=== PATIENT | female | born 1990 | race Caucasian/White ===

== ENCOUNTER 2017-10-12 00:05 | Emergency (ER) | payer BC ==
[2017-10-12] MEDS ORDERED: Ondansetron HCl/PF 4 MG/2 ML Vial ONE ×2 (00:27→01:39)
[2017-10-12 00:59] LABS: Bilirubin Negative (Negative); Blood, Urine Small (Negative); Glucose, Urine (Dipstick) Negative (Negative); Ketone, Urine 80 mg/dL (Negative); Nitrite Negative (Negative); Protein, Urine (Dipstick) Negative (Neg-Trace); Urobilinogen 0.2 mg/dL (0.2-1.0)
[2017-10-12 01:01] LABS: #Eosinphils 0.1 thou/uL (0.0-0.7); #Lymphocytes 1.4 thou/uL (1.20-3.40); #Monocytes 0.9 thou/uL (0.11-0.59); #Neutrophils 13.9 thou/uL (1.40-6.50); %Eosinophils 0.3 % (0.0-10.0); %Lymphocytes 8.4 % (21.0-51.0); %Monocytes 5.7 % (0.0-10.0); Hematocrit 45.5 % (36.0-47.0); Mean Platelet Volume 8.6 fL (7.4-10.4); Red Blood Cell (RBC) Count 4.81 mill/uL (4.20-5.40); White Blood Cell (WBC) Count 16.3 thou/uL (4.8-10.8)
[2017-10-12 01:02] LABS: Bacteria/HPF None Seen HPF (None Seen); Hyaline Casts/LPF 4-6 HYALINE CAST LPF (0-3 Hyaline)
[2017-10-12 01:04] LABS: Yeast-All Forms None Seen HPF (None Seen)
[2017-10-12 01:33] LABS: ALT (SGPT) 12 U/L (8-55); AST (SGOT) 18 U/L (5-34); Alkaline Phosphatase 77 U/L (40-150); Anion Gap 17 mmol/L (10-20); BUN (Urea Nitrogen) 12 mg/dL (7.0-18.7); Calc. Creatinine Clearance 0 mL/min (70-130); Calcium 9.6 mg/dL (7.8-10.44); Carbon Dioxide 19 mmol/L (22-29); Chloride 104 mmol/L (98-107); Estimated GFR-MDRD Greater than 90; Globulin 3.8 g/dL (2.4-3.5); Lipase 8 U/L (8-78); Protein, Total 8.6 g/dL (6.0-8.3)
[2017-10-12] MEDS ORDERED: Water For Inject, Bacteriostat 30 ML ONE (01:39)
[2017-10-12] MEDS ORDERED: Morphine 4 MG/ML VIAL ONE (01:39)
[2017-10-12] MEDS ORDERED: methylPREDNISolone Sod Succ/PF 125 MG/2 ML VIAL ONE (01:39)
--- NOTE | 2017-10-12 08:02 | ULT ---
PRELIMINARY REPORT/[facility]/EMERGENCY AFTER HOURS PROCEDURE: EXAM: US Abdomen Limited, Right Upper Quadrant EXAM DATE/TIME: Exam ordered 10/12/2017 12:47 AM CLINICAL HISTORY: 27 years old, female; Pain; Other: Abd pain, vomitting, HX of crohns TECHNIQUE: Real-time ultrasound of the right upper quadrant with image documentation. COMPARISON: No relevant prior studies available. FINDINGS: Liver: Unremarkable. No mass. No intrahepatic bile duct dilation. Gallbladder: Unremarkable. No gallstones. Common bile duct: Unremarkable as visualized. No stones. No dilation. Pancreas: Unremarkable as visualized. Right kidney: Unremarkable. No stones. No solid mass. No hydronephrosis. IMPRESSION: Normal right upper quadrant ultrasound. Thank you for allowing us to participate in the care of your patient. Dictated and Authenticated by: Marty Jose MD 10/12/2017 1:12 AM Central Time ([place] & [place]) FINAL REPORT RIGHT UPPER QUADRANT ULTRASOUND: EMERGENT AFTER HOURS EXAMINATION TIME: 12:56 a.m. DATE: 10/12/17. No gallstones, biliary ductal dilatation, or other significant acute process. POS: HAY
== END 2017-10-12 02:54 | disposition home or self-care (01) ==
LOC: ERS 00:05
DX: K50.90 Crohn's disease, unspecified, without complications (principal)
CPT/HCPCS: 76705; 80053; 81003; 81015; 81025; 83690; 85025; 96361; 96372; 96374; 96375; 96376; J2270; J2405; J2930

== ENCOUNTER 2017-12-24 19:58 | Inpatient (IN) | payer BC, SELFPAY ==
[~2017-12-24 19:58] MED LIST: GASTROGRAFIN 30 ML BOT ONE; Iopamidol 370 76% 100 ML VIAL ONE
[2017-12-24 20:31] LABS: #Eosinphils 0.1 thou/uL (0.0-0.7); #Lymphocytes 1.4 thou/uL (1.20-3.40); #Monocytes 0.8 thou/uL (0.11-0.59); #Neutrophils 11.2 thou/uL (1.40-6.50); %Basophils 0.1 % (0.0-1.0); %Eosinophils 0.9 % (0.0-10.0); %Lymphocytes 10.5 % (21.0-51.0); %Monocytes 5.8 % (0.0-10.0); %Neutrophils 82.8 % (42.0-75.0); Hemoglobin 15.2 g/dL (12.0-16.0); Mean Corpuscular HGB CONC 32.7 g/dL (32.0-36.0); Mean Corpuscular Volume 94.8 fl (81.0-99.0); Platelet Count 323 thou/uL (130-400); RBC Distribution Width 11.7 % (11.5-14.5); Red Blood Cell (RBC) Count 4.92 mill/uL (4.20-5.40); White Blood Cell (WBC) Count 13.6 thou/uL (4.8-10.8)
[2017-12-24 20:43] LABS: Bilirubin Negative (Negative); Blood, Urine Small (Negative); Clarity CLOUDY (Clear); Glucose, Urine (Dipstick) Negative (Negative); Leukocyte Negative (Negative); Nitrite Negative (Negative); Protein, Urine (Dipstick) Trace mg/dL (Neg-Trace); Specific Gravity, Urine 1.031 (1.002-1.036); Urobilinogen 0.2 mg/dL (0.2-1.0); pH, Urine 5.5 (5.0-9.0)
[2017-12-24 20:44] LABS: Pregnancy Test - Urine (BHCG) Negative (Negative); Pregu Control Background? CLEAR/WHITE (CLR/WHITE); Pregu Control Bar Appear? YES (CONTROL BAR); Specific Gravity 1.031 (1.002-1.036)
[2017-12-24 20:46] LABS: Bacteria/HPF Rare-Few HPF (None Seen); Hyaline Casts/LPF 0-3 HYALINE CAST LPF (0-3 Hyaline); Pathc Cast-AUWi Flag 0.13 (0-2.49)
[2017-12-24 20:48] LABS: Yeast-AUWi Flag 70.8 (0-25.0)
[2017-12-24 20:52] LABS: ALT (SGPT) 11 U/L (8-55); AST (SGOT) 15 U/L (5-34); Albumin 4.9 g/dL (3.5-5.0); Alkaline Phosphatase 83 U/L (40-150); Anion Gap 14 mmol/L (10-20); BUN (Urea Nitrogen) 12 mg/dL (7.0-18.7); Bilirubin, Total 0.9 mg/dL (0.2-1.2); Calc. Creatinine Clearance 0 mL/min (70-130); Calcium 9.7 mg/dL (7.8-10.44); Carbon Dioxide 25 mmol/L (22-29); Chloride 104 mmol/L (98-107); Estimated GFR-MDRD Greater than 90; Globulin 3.7 g/dL (2.4-3.5); Glucose 100 mg/dL (70-105); Potassium 3.6 mmol/L (3.5-5.1); Protein, Total 8.6 g/dL (6.0-8.3); Sodium 139 mmol/L (136-145)
[2017-12-24 20:55] LABS: Yeast-All Forms None Seen HPF (None Seen)
--- NOTE | 2017-12-24 22:57 | CT ---
ABDOMEN AND PELVIC CT SCAN WITH IV CONTRAST 12/24/17 HISTORY: 27-year-old female with history of abdominal pain. Past medical history of Crohn's disease. Oral and rectal contrast media was given as well. COMPARISON: 10/19/16. The lung bases appear clear. The liver, gallbladder, pancreas, spleen, and adrenal glands are unremar kable. No renal calculus or acute obstruction. There is abnormally dilated small bowel, evidence f or small bowel obstruction with dilated bowel seen down to the level of the terminal ileum with some increased wall thickening at the level of the terminal ileum which may well be related to Crohn's dis ease. A normal appendix is not seen, although there appears to be at least one surgical clip in the e xpected location of the appendix raising concern that the patient may have had a prior appendectomy. There is some moderate free fluid in the pelvis. Uterus and adnexa are somewhat poorly defined. There is no CT evidence for acute appendicitis. IMPRESSION: Evidence for small bowel obstruction with dilated small bowel seen down to the level near the ileocec al valve with some associated terminal ileal wall thickening probably related to Crohn's disease. Ernst e intraperitoneal fluid, moderate within the pelvis. No evidence of an abscess. No CT evidence for ac [place] appendicitis. POS: ANA MARIA
[2017-12-24] MEDS ORDERED: Ondansetron HCl/PF 4 MG/2 ML Vial ONE (23:00)
[2017-12-25] MEDS ORDERED: Ondansetron HCl/PF 4 MG/2 ML Vial IVP PRN (01:20)
[2017-12-25] MEDS ORDERED: Morphine 5 MG/ML SYRINGE SLOW IVP PRN ×2 (01:20→14:45)
[2017-12-25] MEDS ORDERED: Acetaminophen 325 MG TAB PO PRN (01:20)
[2017-12-25] MEDS ORDERED: Ondansetron ODT 4 MG TAB SL PRN (01:20)
[2017-12-25] MEDS: Sodium Chloride 0.9% 1,000 ML IV SCH ×2 (01:27→14:53)
[2017-12-25 01:29] VITALS: BMI 24.0
[2017-12-25] MEDS: FLU VACC QS2017-18 36 mo. & older 0.5 ML SYRINGE IM ONE (01:59)
--- NOTE | 2017-12-25 04:15 | HP ---
DATE OF ADMISSION: 12/25/2017 ADMITTING PHYSICIAN: Dr. Florencio Canas. PRIMARY CARE PHYSICIAN: Dr. Coco Romo. SQUILGEER OF RECORD: Dr. Kendrick. CHIEF COMPLAINT: Abdominal pain. HISTORY OF PRESENT ILLNESS: This is a 27-year-old female with history of Crohn's disease. She repor ts 2 days ago that she ate a TV dinner as well as chips with ranch and dip. She began to experience some abdominal discomfort after this meal. Her abdominal pain has worsened over the following 2 days . She denies any vomiting, diarrhea, and hematochezia. The pain is dull in nature. She rated her m aximum pain 3/10. She reports her last bowel movement was approximately 5:00 p.m. on . It w as a relatively normal bowel movement, no watery diarrhea, no bloody diarrhea. REVIEW OF SYSTEMS: The following complete review of systems was negative, unless otherwise mentioned in the HPI or below: Constitutional: Weight loss or gain, sense of well-being, ability to conduct usual activities, exercise tolerance. Skin/Breast: Rash, itching, changes in hair growth or loss, n ail changes, breast lumps, tenderness, swelling, nipple discharge. Eyes: Vision, double vision, tea ring, blind spots, pain. ENT/Mouth: Headaches (location, time of onset, duration, precipitating fac tors), vertigo, lightheadedness, injury. Vision, double vision, tearing, blind spots, pain, nose blee ding, colds, obstruction, discharge, dental difficulties, gingival bleeding, dentures, neck stiffness , pain, tenderness, masses in thyroid or other areas. Cardiovascular: Precordial pain, substernal d istress, palpitations, syncope, dyspnea on exertion, orthopnea, nocturnal paroxysmal dyspnea, edema, cyanosis, hypertension, heart murmurs, varicosities, phlebitis, claudication. Respiratory: Pain, sh ortness of breath, wheezing, stridor, cough, hemoptysis, fever or night sweats. Gastrointestinal: P oor appetite, dysphagia, indigestion, abdominal pain, heartburn, eructation, nausea, vomiting, hemate mesis, jaundice, constipation, or diarrhea, abnormal stools (dasia-colored, tarry, bloody, greasy, fou l smelling), flatulence, hemorrhoids, recent changes in bowel habits. Genitourinary: Urgency, frequency, dysuria, nocturia, hematuria, polyuria, oliguria, unusual (or fawn nge in) color of urine, stones, hesitancy, change in size of stream, dribbling, acute retention or in continence, libido, potency. Musculoskeletal: Pain, swelling, redness or heat of muscles or joints, limitation, of motion, muscular weakness, atrophy, cramps. Neurologic/Psychiatric: Convulsions, par alyses, tremor, incoordination, parasthesias, difficulties with memory of speech, sensory or motor di sturbances, or muscular coordination (ataxia, tremor), emotional problems, anxiety, depression, previ ous psychiatric care, unusual perceptions, hallucinations. Allergy/Immunologic: Skin rash, anemia, bleeding tendency, polydipsia, polyuria, intolerance to heat or cold. PAST MEDICAL HISTORY: Significant for Crohn's disease. PAST SURGICAL HISTORY: Positive for right oophorectomy. PSYCHIATRIC HISTORY: Positive for depression. SOCIAL HISTORY: Denies alcohol, denies drug use. No smoking. FAMILY HISTORY: Reviewed and noncontributory to this particular case. HOME MEDICATIONS: Include Abilify 15 mg every day, Celexa 40 mg every day, Imuran 50 mg b.i.d. ALLERGIES: No known drug allergies. PHYSICAL EXAMINATION: VITAL SIGNS: Temperature of 98.4, blood pressure 112/70, pulse 86, respirations 16, satting 96% on r oom air. GENERAL: She is a pleasant young lady with no apparent distress. HEAD: Normocephalic, atraumatic. EYES: PERRL. Extraocular muscles are intact. ENT: Normal. Oral mucosa pink, moist. NECK: Trachea midline, normal range of motion, supple. CHEST: Breath sounds clear. No rhonchi, no wheezes, no crackles. CARDIOVASCULAR: Regular rate and rhythm, no murmurs, regurg or gallops. ABDOMEN: Mild tenderness in right lower quadrant. No guarding, no rebound, no masses, no pulsatile masses. EXTREMITIES: No clubbing, cyanosis or edema. NEUROLOGIC: Cranial nerves II-XII grossly intact. Alert and oriented x3. LABORATORY DATA AND IMAGES: Abdominal CT shows small-bowel obstruction with dilated small-bowel seen down to the level near the ileocecal valve with some terminal ileal wall thickening, but no evidence of abscess, no evidence for acute appendicitis. CBC shows a white count of 13.6, hemoglobin 15.2, h ematocrit 46.6, platelets 323,000, neutrophil percentage 83%. Chemistry shows sodium of 139, potassi um 3.6, CO2 of 25, BUN 12, creatinine 0.75, glucose 100, calcium 9.7, AST 15, ALT 11, alkaline phosph atase 83, total protein of 8.6. Urinalysis is yellow, cloudy, ketones 15, small amount of blood, neg ative nitrites, negative leukocytes, rare to few bacteria. ASSESSMENT AND PLAN: 1. Acute Crohn's disease flare. 2. Small-bowel obstruction. 3. Depression. PLAN: Patient will be admitted to medicine observation. We will supply fluid resuscitation, IV Solu -Medrol, IV levofloxacin. We will also consult the Gastroenterology Service to assist in providing c are to this patient. We will continue her home regimen for her mood disorder. We will provide VTE p rophylaxis with SCD devices.
[2017-12-25 05:42] LABS: #Eosinphils 0.1 thou/uL (0.0-0.7); #Monocytes 0.9 thou/uL (0.11-0.59); #Neutrophils 6.4 thou/uL (1.40-6.50); %Basophils 0.1 % (0.0-1.0); %Lymphocytes 21.8 % (21.0-51.0); %Monocytes 9.1 % (0.0-10.0); Hemoglobin 13.1 g/dL (12.0-16.0); Mean Corpuscular HGB CONC 33.1 g/dL (32.0-36.0); Mean Corpuscular Hemoglobin 31.3 pg (27.0-31.0); Mean Corpuscular Volume 94.7 fl (81.0-99.0); Mean Platelet Volume 8.3 fL (7.4-10.4); Platelet Count 236 thou/uL (130-400); RBC Distribution Width 11.7 % (11.5-14.5); Red Blood Cell (RBC) Count 4.18 mill/uL (4.20-5.40); White Blood Cell (WBC) Count 9.4 thou/uL (4.8-10.8)
[2017-12-25] MEDS ORDERED: methylPREDNISolone Sod Succ/PF 125 MG/2 ML VIAL IVP SCH (09:00)
[2017-12-25] MEDS ORDERED: Sodium Chloride 0.9% 10 ML ONE ×2 (09:09→14:46)
[2017-12-25] MEDS: Famotidine/PF 20 mg/2ml Vial SLOW IVP SCH ×2 (09:37→21:52)
[2017-12-25] MEDS: azaTHIOprine 50 MG TAB PO SCH ×3 (09:37→21:53)
[2017-12-25] MEDS ORDERED: Ondansetron ODT 4 MG TAB PO PRN (14:09)
[2017-12-25] MEDS ORDERED: Morphine 4 MG/ML Carpuject SLOW IVP PRN (14:09)
[2017-12-25] MEDS: Ondansetron HCl/PF 4 MG/2 ML Vial IVP PRN (14:48)
[2017-12-25] MEDS: Aripiprazole 10 MG TAB PO SCH (21:53)
--- NOTE | 2017-12-26 01:09 | CON ---
DATE OF CONSULTATION: 12/25/2017 GASTROENTEROLOGY CONSULTATION CHIEF COMPLAINT: Abdominal pain. HISTORY OF PRESENT ILLNESS: Mr. Capps is a 27-year-old woman who has a history of terminal ileum Crohn's disease, who presented with cramping right lower quadrant pain that started early yesterday m orning. She had 3 episodes of nausea and vomiting at home, but that has since resolved and the pain has been constant and cramping, but becomes intense for 10 or 15 minutes few times through the day. She has had no blood in the stool. She had a formed bowel movement yesterday. She has not had diarr hea or constipation with this. She has had no fever and she did go to the emergency room around last September with abdominal pain and was given a course of steroids and sent home. Around that time she quit taking her azathioprine. She had been following with Dr. Kendrick most recently and she last saw him around March. He performed colonoscopy for her at the [facility] around . She has not followed up with him since then and she has since ran out of the azathioprine. S he was admitted now and received IV steroids and her pain is much improved. PAST MEDICAL HISTORY: Crohn's disease, depression. PAST SURGICAL HISTORY: Ovary removed for large cyst. FAMILY HISTORY: Positive for colon cancer in her uncle. There is no family history of inflammatory bowel disease. SOCIAL HISTORY: No alcohol, tobacco or drugs. ALLERGIES: No known drug allergies. MEDICATIONS AT HOME: Prior to admission include Abilify and Celexa. She has not been taking the aza thioprine over the last few months. REVIEW OF SYSTEMS: Negative x10 systems reviewed except as stated in the history of present illness. PHYSICAL EXAMINATION: VITAL SIGNS: Temperature 98.2, pulse 83, blood pressure 100/56. GENERAL: She is in no acute distress, alert and oriented x3. HEENT: Eyes have no scleral icterus. Oropharynx is clear, without lesions. NECK: No cervical or supraclavicular lymphadenopathy. LUNGS: Clear to auscultation bilaterally. HEART: Regular rate and rhythm without murmur. ABDOMEN: Soft. She has tenderness in the lower abdomen without guarding. Bowel sounds are present. EXTREMITIES: No lower extremity edema. NEUROLOGIC: Cranial nerves are grossly intact. LABORATORY: White blood cell count is 9.4 today down from 13.6 yesterday, hemoglobin 13.1, platelets 236, creatinine 0.75, bilirubin 0.9, AST 15, ALT 11, alkaline phosphatase 83, albumin 4.9. She did have a CT scan of the abdomen and pelvis on 12/24/2017, which showed wall thickening of the terminal ileum and dilated small bowel up to the level of the terminal ileum. IMPRESSION: Exacerbation of Crohn's disease in the terminal ileum. She was diagnosed with Crohn's d isease in 2005. She had been treated longer term with azathioprine. She did take Remicade for a cou ple months around 2014, but had trouble scheduling this for her outpatient infusions with work and e ultimately quit taking it. She quit taking her azathioprine in 09/2017. She has not followed up w sahara Kendrick since March. She did have a colonoscopy around 03/2017. CT scan shows dilation of t he small bowel up to the inflamed terminal ileum. She does not appear to have an obvious bowel obstr uction now, she has had no ongoing vomiting and she had a normal bowel movement yesterday. She has m ild tenderness, but bowel sounds are active. RECOMMENDATIONS: 1. Continue methylprednisolone 20 mg q.8 hours I will reduce the dose of this. 2. If she is only on levofloxacin for the Crohn's disease, then this should be able to be discontinu ed. I will not stop it now in case the primary service has her on another reason I am not aware of. 3. Restart azathioprine. She has been on 150 mg daily previously. 4. She could likely benefit from Humira. She will need to follow up with Dr. Kendrick as an outpat ient demonstrate noncompliance and she will also need to get routine blood work checked while on azat hioprine. This was discussed with her and she is agreeable. 5. Her symptoms have markedly improved with steroids. I will start clear liquids this evening and i f she tolerates this well tomorrow we can advance her diet.
[2017-12-26] MEDS: Sodium Chloride 0.9% 1,000 ML IV SCH ×3 (06:35→13:44)
[2017-12-26] MEDS: azaTHIOprine 50 MG TAB PO SCH ×2 (09:22→13:44)
[2017-12-26] MEDS: Famotidine/PF 20 mg/2ml Vial SLOW IVP SCH ×2 (09:22→21:32)
[2017-12-26] MEDS: Acetaminophen 325 MG TAB PO PRN (09:22)
--- NOTE | 2017-12-26 15:36 | PDOC.PN ---
- Subjective Encounter Start Date: 12/26/17 Encounter Start Time: 10:30 -: old records requested/rev Pt seen and examined, chart reviewed in its entirety. This is my first visit with this patient. admitted early 12/25 for crohn's flare. seen by GI last evening, continued on IV steroids, recommended stopping levoflox, eventually starting humira, start back azathioprine, though wont be helpful for some time Case discussed with Dr Rodgers face to face. Pt sarbjit clear diet, no F/C, nauseated this am after drinking her breakfast she thinks too fast, non last night. No diarheea, no rectal bleeding, no Cough, no CP or SOB 10 point ROS performed and neg for all systems except as above - Objective Resuscitation Status: Resuscitation Status FULL:Full Resuscitation MAR Reviewed: Yes Vital Signs & Weight: Vital Signs (12 hours) Temp Pulse Resp BP Pulse Ox 12/26/17 12:06 97.7 F 77 20 92/51 L 98 12/26/17 08:24 97.7 F 71 20 99/55 L 96 12/26/17 08:10 98.0 F 79 18 Weight Weight 144 lb 13.499 oz I&O: 12/25/17 12/26/17 12/27/17 06:59 06:59 06:59 Intake Total 394 2165 1340 Output Total 175 Balance 219 2165 1340 Result Diagrams: 12/25/17 05:08 12/24/17 20:21 Radiology Reviewed by me: Yes EKG Reviewed by me: Yes Phys Exam - Physical Examination Constitutional: NAD HEENT: PERRLA, moist MMs, sclera anicteric, oral pharynx no lesions Neck: no nodes, no JVD, supple, full ROM Respiratory: no wheezing, no rales, no rhonchi, clear to auscultation bilateral Cardiovascular: RRR, no significant murmur, no rub Gastrointestinal: soft, non-tender, no distention, positive bowel sounds Musculoskeletal: no edema, pulses present Neurological: non-focal, normal sensation, moves all 4 limbs Lymphatic: no nodes Psychiatric: normal affect, A&O x 3 Skin: no rash, normal turgor, cap refill <2 seconds Dx/Plan (1) Acute Crohn's disease without complication Code(s): K50.90 - CROHN'S DISEASE, UNSPECIFIED, WITHOUT COMPLICATIONS Status: Acute Comment: IV steroid,s azathioprine, stop levoflox. advance diet, pain control. Home when sarbjit p and cleared by GI. anticipate in 1-2 days. markedly better today (2) Crohn's disease involving terminal ileum Code(s): K50.90 - CROHN'S DISEASE, UNSPECIFIED, WITHOUT COMPLICATIONS Status: Acute (3) Iron deficiency anemia Code(s): D50.9 - IRON DEFICIENCY ANEMIA, UNSPECIFIED Status: Chronic Qualifiers: Iron deficiency anemia type: inadequate dietary iron intake Qualified Code( s): D50.8 - Other iron deficiency anemias (4) Depression Code(s): F32.9 - MAJOR DEPRESSIVE DISORDER, SINGLE EPISODE, UNSPECIFIED Status : Chronic Qualifiers: Depression Type: unspecified Qualified Code(s): F32.9 - Major depressive disorder, single episode, unspecified - Plan cont current plan of care, out of bed/ambulate, DVT proph w/lovenox * . as above
[2017-12-26] MEDS ORDERED: Sodium Chloride 0.9% 10 ML ONE (17:30)
--- NOTE | 2017-12-26 19:58 | PRG ---
DATE OF SERVICE: 12/26/2017 SUBJECTIVE: Ms. Capps is feeling better today. Her abdominal pain is improved. She has had some nausea, but no vomiting. She is tolerating a clear liquid diet. OBJECTIVE: VITAL SIGNS: Temperature 97.7, pulse 77, blood pressure 92/51. GENERAL: She is in no acute distress, alert and oriented x3. EYES: Have no scleral icterus. LUNGS: Clear to auscultation bilaterally. HEART: Regular rate and rhythm. ABDOMEN: Soft. Mild tenderness in the lower abdomen without guarding. Bowel sounds are present. EXTREMITIES: No lower extremity edema. IMPRESSION: Exacerbation of Crohn's ileitis. She is responding well to IV steroids so far. She has not been compliant with office followup or continuation of her medications. I think she could benef it from Humira. RECOMMENDATIONS: 1. We will check a TB QuantiFERON and hepatitis B surface antigen, and HIV 1 and 2 in anticipation o f potentially starting back on anti-TNF therapy. This would need to be done as an outpatient after t he medication is improved and she keeps follow up with her primary health informatics advisor, Dr. Kendrick. He will also need to determine if he thinks Humira is appropriate for her. 2. Continue azathioprine 150 mg daily. She will need to have her CBC checked on this medication. 3. Primary treatment at this point is the steroids to try to induce remission and by time for the az athioprine to work. 4. We will advance to a full liquid diet this evening. If she tolerates this well, then potentially advance to a low residue diet tomorrow. If she tolerates that well, then she could potentially be s witched the next day to oral prednisone and discharged home that evening if doing well. Again, she w as encouraged to follow up with Dr. Kendrick in the office; however, he should be back in the hospit al to round on her tomorrow.
[2017-12-26] MEDS: FLU VACC QS2017-18 36 mo. & older 0.5 ML SYRINGE IM ONE (21:34)
[2017-12-26] MEDS: Aripiprazole 10 MG TAB PO SCH (21:37)
[2017-12-27] MEDS: Sodium Chloride 0.9% 1,000 ML IV SCH ×2 (00:59→12:27)
[2017-12-27] MEDS: Famotidine/PF 20 mg/2ml Vial SLOW IVP SCH ×2 (07:54→21:19)
[2017-12-27] MEDS: azaTHIOprine 50 MG TAB PO SCH (07:54)
[2017-12-27] MEDS: Acetaminophen 325 MG TAB PO PRN (07:54)
[2017-12-27] MEDS ORDERED: Sodium Chloride 0.9% 10 ML ONE ×2 (10:43→11:12)
[2017-12-27 10:53] LABS: HBSAg Index 0.19 S/CO (0-0.99); Hep B Surf Ag Non-Reactive S/CO (NonReactive)
[2017-12-27] MEDS ORDERED: predniSONE 20 MG TAB PO SCH ×2 (11:15→11:45)
[2017-12-27] MEDS ORDERED: Citalopram 20 MG TAB PO SCH (11:45)
[2017-12-27] MEDS: Ondansetron HCl/PF 4 MG/2 ML Vial IVP PRN (13:22)
--- NOTE | 2017-12-27 13:51 | PDOC.PN ---
- Subjective Encounter Start Date: 12/27/17 Encounter Start Time: 12:30 sarbjit full liquids, no vomiting, minimal nausea, pain improving, sarbjit solumedrol, just got a dose at 1000. Dr Holly requested labs for TB, Hep B etc prior to immunomodulating Rx. plans rto let Dr العلي work on it as an outpateint. No diarrhea, no rectal bleeding 10 point ROS performed and neg for all systems except as above - Objective Resuscitation Status: Resuscitation Status FULL:Full Resuscitation MAR Reviewed: Yes Vital Signs & Weight: Vital Signs (12 hours) Temp Pulse Resp BP Pulse Ox 12/27/17 12:18 97.7 F 78 18 105/57 L 97 12/27/17 08:08 97.9 F 75 18 105/53 L 96 12/27/17 08:00 97.9 F 75 18 12/27/17 05:12 72 16 108/62 97 Weight Weight 144 lb 13.499 oz I&O: 12/26/17 12/27/17 12/28/17 06:59 06:59 06:59 Intake Total 2165 3526 240 Output Total 600 Balance 2165 3526 -360 Result Diagrams: 12/25/17 05:08 12/24/17 20:21 Phys Exam - Physical Examination Constitutional: NAD HEENT: PERRLA, moist MMs, sclera anicteric, oral pharynx no lesions Neck: no nodes, no JVD, supple, full ROM Respiratory: no wheezing, no rales, no rhonchi, clear to auscultation bilateral Cardiovascular: no significant murmur, no rub Gastrointestinal: soft, non-tender, no distention, positive bowel sounds Musculoskeletal: no edema, pulses present Neurological: non-focal, normal sensation, moves all 4 limbs Lymphatic: no nodes Psychiatric: normal affect, A&O x 3 Skin: no rash, normal turgor, cap refill <2 seconds Dx/Plan (1) Acute Crohn's disease without complication Code(s): K50.90 - CROHN'S DISEASE, UNSPECIFIED, WITHOUT COMPLICATIONS Status: Acute Comment: IV steroid,s azathioprine, stop levoflox. advance diet, pain control. Home when sarbjit po and cleared by GI. po prednisone to srtart today and restart pts Celexa. Home when ok with GI (2) Crohn's disease involving terminal ileum Code(s): K50.90 - CROHN'S DISEASE, UNSPECIFIED, WITHOUT COMPLICATIONS Status: Acute (3) Iron deficiency anemia Code(s): D50.9 - IRON DEFICIENCY ANEMIA, UNSPECIFIED Status: Chronic Qualifiers: Iron deficiency anemia type: inadequate dietary iron intake Qualified Code( s): D50.8 - Other iron deficiency anemias (4) Depression Code(s): F32.9 - MAJOR DEPRESSIVE DISORDER, SINGLE EPISODE, UNSPECIFIED Status : Chronic Qualifiers: Depression Type: unspecified Qualified Code(s): F32.9 - Major depressive disorder, single episode, unspecified - Plan * .
--- NOTE | 2017-12-27 15:46 | PRG ---
DATE OF SERVICE: 12/27/2017 SUBJECTIVE: She has tolerated full liquids well. She has no abdominal pain, minimal nausea this mor divina. She has not had a bowel movement since admission, but has not been eating much, wants to wait for another day before she takes a laxative. OBJECTIVE: VITAL SIGNS: Temperature 97.7, pulse 78, blood pressure 105/57. GENERAL: She is in no acute distress, alert and oriented x3. LUNGS: Clear to auscultation bilaterally. HEART: Regular rate and rhythm. ABDOMEN: Soft, nontender, nondistended, bowel sounds are present. EXTREMITIES: No lower extremity edema. IMPRESSION: Exacerbation of Crohn ileitis. She has responded well to IV steroids. RECOMMENDATIONS: 1. Azathioprine 150 mg daily has been restarted. She will need to have her CBC and LFTs checked as an outpatient. 2. She likely could benefit from Humira. We will have her followup with Dr. Kendrick to consider t his further. TB QuantiFERON, hepatitis B surface antigen, and HIV have been sent and are pending. 3. She will require a steroid taper with prednisone 40 mg daily for 1 week, 30 mg daily for 1 week, 20 mg daily for 1 week, 10 mg daily for 1 week, 5 mg daily for 1 week, then discontinue. 4. Follow up with Dr. Kendrick and anticipate discharge home tomorrow if she tolerates the low fibe r diet and oral steroids as well by tomorrow afternoon. Dr. Kendrick should be back rounding tomorr ow.
[2017-12-27] MEDS: Aripiprazole 10 MG TAB PO SCH (21:19)
[2017-12-28 06:27] LABS: HIV (1/2) Antibody/Antigen Non-Reactive (NonReactive); HIV 1/2 INDEX 0.12 S/CO (<1.00)
[2017-12-28] MEDS ORDERED: predniSONE 20 MG TAB PO SCH ×2 (08:00)
[2017-12-28] MEDS ORDERED: Citalopram 20 MG TAB PO SCH (09:00)
[2017-12-28] MEDS: Acetaminophen 325 MG TAB PO PRN (09:37)
[2017-12-28] MEDS: azaTHIOprine 50 MG TAB PO SCH (09:37)
[2017-12-28] MEDS: Famotidine/PF 20 mg/2ml Vial SLOW IVP SCH (09:40)
[2017-12-28] MEDS: Sodium Chloride 0.9% 1,000 ML IV SCH (10:10)
[2017-12-28 16:37] VITALS: BP 105/61; TEMP 98.2
--- NOTE | 2017-12-29 01:31 | DIS ---
DATE OF ADMISSION: 12/24/2017 DATE OF DISCHARGE: 12/28/2017 DISCHARGE DIAGNOSES: 1. Acute Crohn's exacerbation, resolving. 2. Crohn's disease involving the terminal ileum. 3. Iron deficiency anemia, stable. 4. Depression. CONSULTATION: Dr. Rodgers with GI Service. PERTINENT LABORATORY AND X-RAY FINDINGS: Complete metabolic profile within normal limits. CBC showe d a white blood cell count ranging between 9.4-13.6. Urine beta-hCG was negative on 12/24/2017. Hep atitis B surface antigen was nonreactive on 12/27/2017. HIV 1 and 2 antigen and antibody were nonrea ctive on 12/28/2017. CT of the abdomen and pelvis dated 12/24/2017 showed questionable small-bowel o bstruction with dilated small bowel to the ileocecal valve with terminal ileal wall thickening second laurence to Crohn disease. HOSPITAL COURSE: Patient was admitted to the medical floor after initially presenting with increased abdominal pain with history of Crohn disease. The patient was placed on IV Solu-Medrol and IV Levaq uin and evaluated by the GI Service. The patient was also placed on Imuran after appropriate testing for hepatitis B and HIV. The patient was also noted with a negative urine test. The alize ent was clinically improved with IV fluids, IV Solu-Medrol, and general supportive measures. Current recommendations are to continue a prednisone taper therapy after discharge and follow up with GI ser vices for consideration of Humira as an outpatient. Overall, the patient remained clinically stable throughout the hospital course and ready for discharge on 12/28/2017. DISCHARGE MEDICATIONS: 1. Prednisone 10 mg 4 tabs p.o. daily x7 days, followed by 3 tabs p.o. daily x7 days, followed by 2 tabs p.o. daily x7 days, followed by 1 tab p.o. daily x7 days, followed by half a tab p.o. daily x7 d ays. 2. Abilify 5 mg p.o. at bedtime. 3. Imuran 50 mg p.o. t.i.d. 4. Celexa 40 mg p.o. daily. FOLLOWUP: The patient may follow up with her primary care provider, Dr. Coco Romo within 7 days of discharge. The patient may follow up with Dr. Kendrick with GI Service and to call his office for appointment time and date. CONDITION ON DISCHARGE: Stable. ACTIVITY: Ad jillian. DIET: Regular. CODE STATUS: FULL. DISPOSITION: Home on 12/28/2017.
== END 2017-12-28 18:45 | disposition home or self-care (01) | DRG 386 ==
LOC: ERS 19:58 → OBSVTOIN 23:43 → 3SE 23:43
PROVIDERS: ADMIT Internal Medicine Addiction Medicine; ATTEND Internal Medicine Addiction Medicine
DX: K50.912 Crohn's disease, unspecified, with intestinal obstruction (principal); D50.9 Iron deficiency anemia, unspecified; F32.9 Major depressive disorder, single episode, unspecified
CPT/HCPCS: 36415; 74177; 80053; 81003; 81015; 81025; 85025; 86480; 87340; 87389; 90471; 90682; 96374; 96375; J2270; A4216; G0008; J1956; J2405; J2920; J2930; J7500; J7506; Q0162; Q2036; S0028

== ENCOUNTER 2018-05-29 05:39 | Emergency (ER) | payer SELFPAY ==
[2018-05-29 06:24] LABS: Bilirubin Negative (Negative); Blood, Urine Negative (Negative); Clarity CLEAR (Clear); Glucose, Urine (Dipstick) Negative (Negative); Leukocyte Small (Negative); Nitrite Negative (Negative); Protein, Urine (Dipstick) Negative (Neg-Trace); Specific Gravity, Urine 1.023 (1.002-1.036); Urobilinogen 0.2 mg/dL (0.2-1.0); pH, Urine 6.5 (5.0-9.0)
[2018-05-29 06:27] LABS: Bacteria/HPF None Seen HPF (None Seen); Hyaline Casts/LPF 0-3 HYALINE CAST LPF (0-3 Hyaline); Pathc Cast-AUWi Flag 0.14 (0-2.49)
[2018-05-29 06:32] LABS: Pregnancy Test - Urine (BHCG) Negative (Negative); Pregu Control Background? CLEAR/WHITE (CLR/WHITE); Pregu Control Bar Appear? YES (CONTROL BAR); Specific Gravity 1.023 (1.002-1.036)
[2018-05-29 06:35] LABS: Yeast-AUWi Flag 38.2 (0-25.0)
[2018-05-29 06:44] LABS: #Basophils 0.1 thou/uL (0.0-0.2); #Eosinphils 0.2 thou/uL (0.0-0.7); #Monocytes 0.7 thou/uL (0.11-0.59); #Neutrophils 11.7 thou/uL (1.40-6.50); %Basophils 0.4 % (0.0-1.0); %Eosinophils 1.2 % (0.0-10.0); %Lymphocytes 7.3 % (21.0-51.0); %Monocytes 4.9 % (0.0-10.0); %Neutrophils 86.1 % (42.0-75.0); Mean Corpuscular HGB CONC 34.7 g/dL (32.0-36.0); Mean Corpuscular Volume 89.2 fL (78.0-98.0); Mean Platelet Volume 7.5 fL (7.4-10.4); Platelet Count 250 thou/uL (130-400); RBC Distribution Width 11.6 % (11.5-14.5); White Blood Cell (WBC) Count 13.6 thou/uL (4.8-10.8)
[2018-05-29 06:49] LABS: Yeast-All Forms None Seen HPF (None Seen)
[2018-05-29] MEDS ORDERED: Ondansetron HCl/PF 4 MG/2 ML Vial ONE (06:55)
[2018-05-29] MEDS ORDERED: Dexamethasone 10 MG/ML VIAL ONE (06:56)
[2018-05-29 07:05] LABS: ALT (SGPT) 13 U/L (8-55); AST (SGOT) 17 U/L (5-34); Albumin 4.4 g/dL (3.5-5.0); Alkaline Phosphatase 73 U/L (40-150); Anion Gap 12 mmol/L (10-20); BUN (Urea Nitrogen) 12 mg/dL (7.0-18.7); Bilirubin, Total 0.5 mg/dL (0.2-1.2); Calc. Creatinine Clearance 0 mL/min (70-130); Calcium 9.2 mg/dL (7.8-10.44); Carbon Dioxide 23 mmol/L (22-29); Chloride 106 mmol/L (98-107); Estimated GFR-MDRD Greater than 90; Glucose 106 mg/dL (70-105); Lipase 20 U/L (8-78); Potassium 3.9 mmol/L (3.5-5.1); Protein, Total 7.4 g/dL (6.0-8.3); Sodium 137 mmol/L (136-145)
--- NOTE | 2018-05-29 10:16 | CT ---
ABDOMEN CT WITH CONTRAST PELVIC CT WITH CONTRAST: COMPARISON: 12/24/17, 10/19/16. HISTORY: Lower abdominal pain. Vomiting. TECHNIQUE: Abdomen and pelvic CT are performed with IV contrast. Enteric contrast is not administered. Coronal reformatted images are submitted for interpretation. FINDINGS: ABDOMEN CT: Lung bases are clear. Heart size is normal. No pericardial effusion. The descending thoracic aorta and abdominal aorta have a normal caliber. No periaortic fat stranding. Intra- and extrahepatic portal vein is patent. The liver, spleen, pancreas, and adrenal glands have appropriate enhancement. Symmetric enhancement of the kidneys. Bilaterally, no obstructive uropathy. No gastrohepatic, retrocrural, or periportal lymphadenopathy. No mesenteric mass, lymphadenopathy, or free air. A small amount of free fluid is suspected in the p armin. Limited evaluation of the alimentary canal due to lack of oral contrast. There are distended loops o f small bowel with fecalization. There is evidence of adjacent mesenteric fat stranding and inflamma tion. The small bowel loops are near the distal and terminal ileum. The ileocecal junction appears to have some edematous change. There are enlarged lymph nodes in this region. The largest lymph nod e measures 1.3 x 0.8 cm. Appendix is difficult to appreciate. The coronal images suggest a possible internal hernia with swirling of vessels. Surgical consultation is recommended. Colon is decompres sed. IMPRESSION: Distal small bowel obstruction with a possible internal hernia. The findings are similar to the prev ious examination. General surgical consultation is recommended. There is also evidence of distal il eal and terminal ileal thickening. A component of inflammatory bowel disease cannot be excluded. Ap pendix is not appreciated on this exam. Results of the study discussed with Dr. Baig 05/29/18 at 8:47 a.m. CODE CR POS: [facility]
[2018-05-29] MEDS ORDERED: ISOVUE-370 76%-LOCM 1 ML ONE (12:48)
== END 2018-05-29 09:57 | disposition home or self-care (01) ==
LOC: ERS 05:39
DX: K50.912 Crohn's disease, unspecified, with intestinal obstruction (principal); F32.9 Major depressive disorder, single episode, unspecified
CPT/HCPCS: 74177; 80053; 81003; 81015; 81025; 83690; 85025; 96361; 96374; 96375; J1100; J2270; J2405

== ENCOUNTER 2018-09-10 07:28 | Emergency (ER) | payer SELFPAY ==
[2018-09-10 08:08] LABS: #Eosinphils 0.1 thou/uL (0.0-0.7); #Lymphocytes 1.2 thou/uL (1.20-3.40); #Monocytes 0.7 thou/uL (0.11-0.59); #Neutrophils 11.7 thou/uL (1.40-6.50); %Basophils 0.2 % (0.0-1.0); %Eosinophils 0.6 % (0.0-10.0); %Lymphocytes 8.6 % (21.0-51.0); %Neutrophils 85.5 % (42.0-75.0); Hemoglobin 13.7 g/dL (12.0-16.0); Mean Corpuscular HGB CONC 33.3 g/dL (32.0-36.0); Mean Corpuscular Hemoglobin 30.1 pg (27.0-31.0); Mean Corpuscular Volume 90.3 fL (78.0-98.0); Platelet Count 287 thou/uL (130-400); RBC Distribution Width 12.7 % (11.5-14.5); Red Blood Cell (RBC) Count 4.55 mill/uL (4.20-5.40); White Blood Cell (WBC) Count 13.7 thou/uL (4.8-10.8)
[2018-09-10 08:16] LABS: Bilirubin Small (Negative); Blood, Urine Trace (Negative); Clarity CLOUDY (Clear); Glucose, Urine (Dipstick) Negative (Negative); Leukocyte Negative (Negative); Nitrite Negative (Negative); Protein, Urine (Dipstick) Negative (Neg-Trace); Specific Gravity, Urine 1.029 (1.002-1.036); Urobilinogen 0.2 mg/dL (0.2-1.0); pH, Urine 5.5 (5.0-9.0)
[2018-09-10 08:18] LABS: BHCG - Serum Negative (NEGATIVE); Bacteria/HPF None Seen HPF (None Seen); Hyaline Casts/LPF 0-3 HYALINE CAST LPF (0-3 Hyaline); Pathc Cast-AUWi Flag 0.87 (0-2.49); Pregs Control Background? CLEAR/WHITE (CLR/WHITE); Pregs Control Bar Appear? YES (CONTROL BAR)
[2018-09-10 08:31] LABS: ALT (SGPT) 11 U/L (8-55); AST (SGOT) 15 U/L (5-34); Albumin 4.5 g/dL (3.5-5.0); Alkaline Phosphatase 66 U/L (40-150); Anion Gap 12 mmol/L (10-20); BUN (Urea Nitrogen) 10 mg/dL (7.0-18.7); Bilirubin, Total 0.8 mg/dL (0.2-1.2); Calc. Creatinine Clearance 0 mL/min (70-130); Calcium 9.4 mg/dL (7.8-10.44); Carbon Dioxide 23 mmol/L (22-29); Chloride 105 mmol/L (98-107); Estimated GFR-MDRD Greater than 90; Globulin 3.4 g/dL (2.4-3.5); Glucose 96 mg/dL (70-105); Lipase 11 U/L (8-78); Potassium 3.5 mmol/L (3.5-5.1); Protein, Total 7.9 g/dL (6.0-8.3); Sodium 136 mmol/L (136-145)
[2018-09-10] MEDS ORDERED: Dicyclomine 20 MG TAB ONE (08:35)
[2018-09-10] MEDS ORDERED: Ondansetron ODT 4 MG TAB ONE (08:35)
[2018-09-10] MEDS ORDERED: predniSONE 20 MG TAB ONE (08:39)
== END 2018-09-10 08:42 | disposition home or self-care (01) ==
LOC: ERS 07:28
DX: D72.829 Elevated white blood cell count, unspecified (principal); R31.9 Hematuria, unspecified; R10.9 Unspecified abdominal pain; K50.90 Crohn's disease, unspecified, without complications; R11.0 Nausea; F32.9 Major depressive disorder, single episode, unspecified
CPT/HCPCS: 80053; 81003; 81015; 83690; 84703; 85025; 87086; 99284; J7506; Q0162

== ENCOUNTER 2019-03-04 09:32 | Emergency (ER) | payer SELFPAY ==
[2019-03-04 10:15] LABS: #Eosinphils 0.1 thou/uL (0.0-0.7); #Monocytes 0.7 thou/uL (0.11-0.59); #Neutrophils 10.2 thou/uL (1.40-6.50); %Basophils 0.3 % (0.0-1.0); %Eosinophils 1.2 % (0.0-10.0); %Lymphocytes 8.1 % (21.0-51.0); %Neutrophils 84.5 % (42.0-75.0); Hemoglobin 13.9 g/dL (12.0-16.0); Mean Corpuscular HGB CONC 32.6 g/dL (32.0-36.0); Mean Corpuscular Hemoglobin 29.8 pg (27.0-31.0); Mean Corpuscular Volume 91.3 fL (78.0-98.0); Mean Platelet Volume 8.7 fL (7.4-10.4); Platelet Count 287 thou/uL (130-400); RBC Distribution Width 12.3 % (11.5-14.5); Red Blood Cell (RBC) Count 4.67 mill/uL (4.20-5.40); White Blood Cell (WBC) Count 12.1 thou/uL (4.8-10.8)
[2019-03-04 10:16] LABS: BHCG - Serum Negative (NEGATIVE); Pregs Control Background? CLEAR/WHITE (CLR/WHITE); Pregs Control Bar Appear? YES (CONTROL BAR)
[2019-03-04 10:34] LABS: ALT (SGPT) 8 U/L (8-55); AST (SGOT) 14 U/L (5-34); Albumin 4.5 g/dL (3.5-5.0); Alkaline Phosphatase 71 U/L (40-150); Anion Gap 13 mmol/L (10-20); BUN (Urea Nitrogen) 11 mg/dL (7.0-18.7); Bilirubin, Total 0.5 mg/dL (0.2-1.2); Calc. Creatinine Clearance 0 mL/min (70-130); Calcium 9.5 mg/dL (7.8-10.44); Carbon Dioxide 22 mmol/L (22-29); Chloride 105 mmol/L (98-107); Estimated GFR-MDRD Greater than 90; Globulin 2.9 g/dL (2.4-3.5); Glucose 99 mg/dL (70-105); Lipase 13 U/L (8-78); Potassium 3.9 mmol/L (3.5-5.1); Protein, Total 7.4 g/dL (6.0-8.3); Sodium 136 mmol/L (136-145)
[2019-03-04] MEDS ORDERED: Ondansetron ODT 4 MG TAB ONE (11:59)
[2019-03-04] MEDS ORDERED: Morphine 4 MG/ML VIAL ONE (13:01)
--- NOTE | 2019-03-04 13:53 | CT ---
EXAM: CT Abdomen Pelvis W Con PROVIDED CLINICAL HISTORY: Patient with abdominal pain for past few days which is worse today. Patient has history of Crohn's di sease. Patient has associated diarrhea and hematochezia. COMPARISON: 05/29/2018 FINDINGS: The lung bases remain clear. There are 2 tiny subcentimeter hypodense foci seen in the right hepatic lobe stable from prior study and are too small to further characterize. The spleen, pancreas, bilateral adrenal glands, and kidneys demonstrate a normal CT appearance. The abdominal aorta is normal in caliber without evidence of an aortic dissection. Urinary bladder is incompletely distended but has a normal appearance. The uterus demonstrates decrea sed attenuation within the endometrial canal which may be related to the stage of the patient's menstrual cycle. Clinical correlation suggested. A 1.8 cm low-density structure with peripheral enhan cement is seen within the left adnexal region likely related to a dominant follicle or involuting cyst. There are thickened miranda of loops of the distal ileum, and the loops of small bowel with there is keren wel wall thickening demonstrate mild dilatation measuring up to 3.7 cm. There is adjacent free fluid in the pelvis and minimal adjacent inflammatory stranding. These findings are likely related to patient's history of inflammatory bowel disease (Crohn's disease). This bowel wall thickening extends to the level of the terminal ileum. The degree of bowel thickening and bowel dilatation in th is region has increased from the prior exam. As noted on the prior exam, there is question of an internal hernia in the region of the thickened loops of bowel; although, this appearance could be rel ated to inflammatory changes and possibly scarring from prior inflammatory changes resulting in this appearance. Small amount of free fluid is seen in the pelvis. There is no defined fluid collection seen to sugges t an abscess. No free intraperitoneal gas is identified. Mildly prominent lymph node in the right lower quadrant is again seen measuring 9 mm in short axis di mension which is likely reactive in origin. The appendix is not definitely visualized on this examination. IMPRESSION: 1. Thickened and mildly dilated loops of distal small bowel which involves the distal ileum and exten ds to the level of the terminal ileum. These findings are likely related to inflammatory bowel disease (Crohn's disease given patient's clinical history). 2. Question of internal hernia involving the loops of small bowel in region of bowel wall thickening which was also noted on the prior exam in 2018. 3. Small amount of ascites predominantly within the pelvis with tiny amount of fluid in the right par acolic gutter.
[2019-03-04] MEDS ORDERED: methylPREDNISolone Sod Succ/PF 125 MG/2 ML VIAL ONE (14:29)
[2019-03-04] MEDS ORDERED: ISOVUE-370 76%-LOCM 1 ML ONE (15:07)
== END 2019-03-04 14:54 | disposition home or self-care (01) ==
LOC: ERS 09:32
DX: K50.90 Crohn's disease, unspecified, without complications (principal); F32.9 Major depressive disorder, single episode, unspecified; Z79.899 Other long term (current) drug therapy
CPT/HCPCS: 36415; 74177; 80053; 83690; 84703; 85025; 96374; 96375; J2270; J2930; Q0162

== ENCOUNTER 2019-10-27 21:16 | Inpatient (IN) | payer SELFPAY ==
[~2019-10-27 21:16] MED LIST changes: -GASTROGRAFIN 30 ML BOT ONE; -Iopamidol 370 76% 100 ML VIAL ONE; +Iopamidol-370 76% 500 ML 1 ML ONE
[2019-10-27] MEDS ORDERED: Promethazine HCl 25 MG/ML VIAL ONE (22:05)
[2019-10-27] MEDS ORDERED: Morphine 4 MG/ML VIAL ONE (22:21)
[2019-10-27 22:24] LABS: #Eosinphils 0.1 thou/uL (0.0-0.7); #Lymphocytes 1.1 thou/uL (1.20-3.40); #Neutrophils 12.2 thou/uL (1.40-6.50); %Basophils 0.3 % (0.0-1.0); %Eosinophils 0.9 % (0.0-10.0); %Lymphocytes 7.3 % (21.0-51.0); %Neutrophils 84.6 % (42.0-75.0); Hemoglobin 13.7 g/dL (12.0-16.0); Mean Corpuscular HGB CONC 33.5 g/dL (32.0-36.0); Mean Corpuscular Hemoglobin 30.4 pg (27.0-31.0); Mean Corpuscular Volume 90.7 fL (78.0-98.0); Mean Platelet Volume 8.2 fL (7.4-10.4); Platelet Count 267 thou/uL (130-400); Red Blood Cell (RBC) Count 4.49 mill/uL (4.20-5.40); White Blood Cell (WBC) Count 14.4 thou/uL (4.8-10.8)
[2019-10-27 22:58] LABS: ALT (SGPT) 15 U/L (8-55); AST (SGOT) 30 U/L (5-34); Albumin 4.4 g/dL (3.5-5.0); Alkaline Phosphatase 66 U/L (40-110); Anion Gap 15 mmol/L (10-20); BUN (Urea Nitrogen) 15 mg/dL (7.0-18.7); Bilirubin, Total 0.6 mg/dL (0.2-1.2); Calc. Creatinine Clearance 0 mL/min (70-130); Calcium 9.2 mg/dL (7.8-10.44); Carbon Dioxide 22 mmol/L (22-29); Chloride 103 mmol/L (98-107); Estimated GFR-MDRD Greater than 90; Globulin 3.7 g/dL (2.4-3.5); Glucose 87 mg/dL (70-105); Lipase 9 U/L (8-78); Potassium 4.5 mmol/L (3.5-5.1); Protein, Total 8.1 g/dL (6.0-8.3); Sodium 135 mmol/L (136-145)
[2019-10-28 00:03] LABS: Bilirubin Negative (Negative); Blood, Urine Negative (Negative); Clarity Clear (Clear); Glucose, Urine (Dipstick) Normal (Negative); Leukocyte Negative Leu/uL (Negative); Nitrite Negative (Negative); Protein, Urine (Dipstick) 10 mg/dL (Neg-Trace); Urobilinogen Normal mg/dL (Less than 2)
[2019-10-28 00:04] LABS: Pregnancy Test - Urine (BHCG) Negative (Negative); Pregu Control Background? CLEAR/WHITE (CLR/WHITE); Pregu Control Bar Appear? YES (CONTROL BAR); Specific Gravity 1.028 (1.002-1.036)
[2019-10-28] MEDS ORDERED: Morphine 4 MG/ML VIAL ONE (00:52)
[2019-10-28] MEDS ORDERED: Benzocaine 20% Spray 60 ML CAN ONE (01:30)
[2019-10-28] MEDS ORDERED: Bacteriostatic Water 30 ML VIAL FS PRN (02:47)
[2019-10-28] MEDS ORDERED: Ondansetron ODT 4 MG TAB SL PRN (02:48)
[2019-10-28] MEDS ORDERED: Morphine 4 MG/ML VIAL SLOW IVP PRN (02:48)
[2019-10-28] MEDS ORDERED: Ondansetron PF 4 MG/2 ML Vial IVP PRN (02:48)
[2019-10-28 04:07] VITALS: BMI 23.9
[2019-10-28] MEDS ORDERED: Acetaminophen 325 MG TAB PO PRN (05:32)
[2019-10-28] MEDS ORDERED: Bisacodyl 5 MG TAB PO PRN (05:32)
[2019-10-28] MEDS ORDERED: Bisacodyl 10 MG SUPP PR PRN (05:32)
[2019-10-28] MEDS ORDERED: HYDROcodone/Acetaminophen 5/325 mg Tablet PO PRN (05:32)
[2019-10-28] MEDS ORDERED: cloNIDine 0.1 MG TAB PO PRN (05:41)
[2019-10-28] MEDS ORDERED: Morphine 2 MG/ML SYRINGE SLOW IVP PRN (05:41)
[2019-10-28] MEDS ORDERED: hydrALAZINE 20 MG/ML VIAL SLOW IVP PRN (05:41)
[2019-10-28] MEDS ORDERED: Promethazine HCl 12.5 MG in Sodium Chloride 0.9% 50 ML IVPB PRN (05:41)
[2019-10-28] MEDS ORDERED: Sodium Chloride 0.9% 1,000 ML IV SCH (05:45)
[2019-10-28] MEDS: methylPREDNISolone Sod Succ 40 MG VIAL IVP SCH ×3 (05:50→21:57)
[2019-10-28] MEDS ORDERED: methylPREDNISolone Sod Succ 40 MG VIAL IVP SCH (06:00)
--- NOTE | 2019-10-28 06:01 | PDOC.HHP ---
Hospitalist HPI - History of Present Illness Abdominal pain History of Present Illness: Patient is a 29 year old female with PMH Crohns disease who presents to ED for abdominal pain and nausea for last few days. She started having abdominal pain since , progressively worsening, vomited yesterday, last BM yesterday as well, sees GI Dr Kendrick for Crohns disease and is on imuran as outpatient , denies diarrhea, pain mostly upper abdomen diffuse. No bleeding. In ED, WBC increased ,CT abdomen ordered and showed SBO, Dr Frey of surgery consulted and requested NGT, Dr Blank of GI called and requested IV steroids 20mg solu medrol q8h, patinet to be admitted to [facility] for further care. Hospitalist ROS - Review of Systems Constitutional: denies: fever, chills Eyes: denies: pain, redness ENT: denies: ear pain, mouth swelling, throat pain Respiratory: denies: cough, shortness of breath Cardiovascular: denies: chest pain, palpitations Gastrointestinal: reports: nausea, vomiting, abdominal pain. denies: diarrhea, constipation, melena, hematochezia Genitourinary: denies: dysuria, frequency Musculoskeletal: denies: neck pain, shoulder pain Skin: denies: rash, lesions Neurological: denies: weakness, numbness All other systems reviewed; all pertinent +/- noted in HPI/Subj - Medication Medications: Active Medications Generic Name Dose Route Start Last Admin Trade Name Freq PRN Reason Stop Dose Admin Morphine Sulfate 4 mg 10/28/19 02:48 10/28/19 03:14 Morphine SLOW IVP 10/28/19 13:40 4 mg Q4H PRN Administration Pain Ondansetron HCl 4 mg 10/28/19 02:48 10/28/19 03:15 Zofran IVP 10/28/19 13:40 4 mg Q6H PRN Administration Nausea/Vomiting Hospitalist History - Past Medical History Other Medical History: crohns disease - Past Surgical History Other Surgical History: r ovary removed - Family History Other Family History: reviewed and noncontributory - Social History Smoking Status: Never smoker Alcohol: reports: None Drugs: reports: none - Exam General Appearance: NAD, awake alert Eye: PERRL, anicteric sclera ENT: normocephalic atraumatic, moist mucosa Neck: supple, symmetric, no JVD Heart: RRR, no murmur, no gallops, no rubs Respiratory: CTAB, no wheezes, no rales, no ronchi Gastrointestinal: soft, non-distended, normal bowel sounds Gastrointestinal - other findings: diffuse tenderness Extremities: no cyanosis, no clubbing, no edema Skin: no lesions, no rashes Neurological: cranial nerve grossly intact, normal sensation to touch, no weakness, no focal deficits Musculoskeletal: normal tone, normal strength Psychiatric: normal affect, normal behavior, A&O x 3 Hospitalist Results - Labs Result Diagrams: 10/27/19 22:08 10/27/19 22:02 Lab results: WBC 14.4 thou/uL (4.8-10.8) H 10/27/19 22:08 Hgb 13.7 g/dL (12.0-16.0) 10/27/19 22:08 Hct 40.7 % (36.0-47.0) 10/27/19 22:08 MCV 90.7 fL (78.0-98.0) 10/27/19 22:08 Plt Count 267 thou/uL (130-400) 10/27/19 22:08 Neutrophils % 84.6 % (42.0-75.0) H 10/27/19 22:08 Sodium 135 mmol/L (136-145) L 10/27/19 22:02 Potassium 4.5 mmol/L (3.5-5.1) 10/27/19 22:02 Chloride 103 mmol/L (98-107) 10/27/19 22:02 Carbon Dioxide 22 mmol/L (22-29) 10/27/19 22:02 BUN 15 mg/dL (7.0-18.7) 10/27/19 22:02 Creatinine 0.70 mg/dL (0.6-1.1) 10/27/19 22:02 Glucose 87 mg/dL (70-105) 10/27/19 22:02 Calcium 9.2 mg/dL (7.8-10.44) 10/27/19 22:02 Total Bilirubin 0.6 mg/dL (0.2-1.2) 10/27/19 22:02 AST 30 U/L (5-34) 10/27/19 22:02 ALT 15 U/L (8-55) 10/27/19 22:02 Alkaline Phosphatase 66 U/L (40-110) 10/27/19 22:02 Serum Total Protein 8.1 g/dL (6.0-8.3) 10/27/19 22:02 Albumin 4.4 g/dL (3.5-5.0) 10/27/19 22:02 Lipase 9 U/L (8-78) 10/27/19 22:02 Urine Ketones Greater than 150 mg/dL (Negative) A 10/27/19 23:32 Urine Blood Negative (Negative) 10/27/19 23:32 Urine Nitrite Negative (Negative) 10/27/19 23:32 Ur Leukocyte Esterase Negative Spring/uL (Negative) 10/27/19 23:32 Hospitalist H&P A/P - Plan Plan: Patient is a 29 year old female with PMH Crohns disease who presents to ED for abdominal pain and nausea for last few days, found to have small bowel obstruction. # small bowel obstruction - in the setting of chronic Crohns disease - admit to floor - ED discussed case with Dr Frey of surgery who requested NGT placement, Dr Blank of GI called and requested IV steroids 20mg solu medrol q8h, appreciate recommendations and consultation in AM - NGT to LIWS, NPO, pain medications PRN, IVF maintenance, patient understands will need admission until resolved - await final CT A/P report # crohns with possible flare - GI consulted by ED, started on IV steroids # leukocytosis - likely reactive to acute stressors and SBO, trend CBC
[2019-10-28] MEDS: Senokot S 8.6-50 MG TAB PO SCH ×2 (07:10→21:56)
[2019-10-28] MEDS: Enoxaparin Sodium 40 MG/0.4 ML SYRINGE SC SCH (08:47)
--- NOTE | 2019-10-28 08:51 | CT ---
PRELIMINARY REPORT/[facility]/EMERGENCY AFTER HOURS PROCEDURE: Receipt of this report by the clinical staff was confirmed with AMARI FREITAS MD by Anu Loza on Oct 28, 2019 01:20:00 GUIDE. Addendum electronically signed by Alexandra Loza on October 28, 2019 1:20:27 AM GUIDE EXAM: CT abdomen/pelvis with contrast CLINICAL HISTORY: ER 23...F29 w/ hx of crohn's presents to the ED with c/o diffuse abdominal pain, nausea and vomiting onset today. Pt states pain is worse in the upper abdomen, states onset was gradual. Pt denies diarrh ea. Pt reports she is taking her daily mediations as prescribed. COMPARISONS: None provided. TECHNIQUE: CT imaging of the abdomen and pelvis after intravenous administration of 100 mL Isovue-370 iodinated contrast. Multiplanar reconstructions performed. FINDINGS: LOWER CHEST: Normal. LIVER: Subcentimeter hypodensities of the liver are too small to characterize, but likely represent c ysts. GALLBLADDER/BILIARY: No cholelithiasis. No biliary ductal dilatation. SPLEEN: Normal. PANCREAS: Normal. ADRENAL GLANDS: Normal. KIDNEYS/URETERS/URINARY BLADDER: Normal appearance of the kidneys. Ureters are normal in course dashawn marianela. No urinary stones. Urinary bladder is decompressed. REPRODUCTIVE: The uterus is retroverted. Corpus luteum of the left ovary. Right ovary/adnexa are unre markable. STOMACH/BOWEL: The distal esophagus and stomach are normal. The proximal small bowel is normal in haven earance. The distal small bowel is dilated within the pelvis measuring up to 3.4 cm in diameter, with both proximal and distal transition points, dilated loops of small bowel with air-fluid levels and f ecalized contents. The involved segment of small bowel is mildly hyperenhancing with areas of wall th ickening. Stool within the proximal colon, and gaseous prominence of the transverse colon. Distal col on is decompressed. APPENDIX: Not visualized. PERITONEUM/MESENTERY: No intraperitoneal free air. Small to moderate pelvic free fluid. VASCULAR: Vascular structures of the abdomen and pelvis are normal in course and caliber. LYMPH NODES: Enlarged right lower quadrant lymph nodes measuring up to 1.2 cm in short axis MUSCULOSKELETAL/ABDOMINAL WALL: No acute fracture or focal osseous lesion. Peripheral soft tissues ar e unremarkable. IMPRESSION: 1. Dilated segment of distal small bowel with proximal and distal transition points, pelvic free flui d, and mucosal thickening of the involved segment. This appearance favors a closed loop obstruction. No evidence of macroscopic perforation. 2. Right lower quadrant lymphadenopathy, which is nonspecific, but favored to be reactive. RECOMMENDATION: Surgical consultation. ELECTRONICALLY SIGNED BY: Mario Anguiano MD Oct 28, 2019 1:13:42 AM GUIDE This report is intended for review by the ordering physician only, in accordance of law. If you recei ve this report in error, please call [facility] at [phone]. FINAL REPORT CT ABDOMEN AND PELVIS WITH IV CONTRAST: I agree with the preliminary report given by Dr. Mario Anguiano of [facility]. POS: [facility]
[2019-10-28] MEDS ORDERED: FLU VACC QS2019-20(6MOS UP)/PF 60 MCG/0.5 ML SYRINGE IM ONE (09:00)
[2019-10-28] MEDS ORDERED: Sodium Chloride 0.9% 500 ML IV SCH (11:00)
--- NOTE | 2019-10-28 11:16 | CON ---
DATE OF CONSULTATION: 10/28/2019 CHIEF COMPLAINT: Abdominal pain. HISTORY OF PRESENT ILLNESS: The patient is a 29-year-old female, who has had Crohn disease since age 16. She has been under care of Dr. Kendrick in Gastroenterology. She has occasional flare ups. Her last admission was January 10. Yesterday, she had worsening pain in her mid abdomen, but she is now feeling much better. Her pain went from 10 to 3. Her nausea has resolved. She passed some flatus in the emergency room. PAST MEDICAL HISTORY: Depression and Crohn's. PAST SURGICAL HISTORY: Right oophorectomy. MEDICATIONS: She is on: 1. Bentyl. 2. Citalopram. 3. Azathioprine. 4. Sulfasalazine. 5. Diltiazem. SOCIAL HISTORY: She is single. She works at [employer]. No tobacco or alcohol. ALLERGIES: NO KNOWN DRUG ALLERGIES. FAMILY HISTORY: Schizophrenia, diabetes, hypertension, and posttraumatic stress disorder. PHYSICAL EXAMINATION: VITAL SIGNS: Temperature 98.9, pulse 98, and blood pressure 104/67. GENERAL: She is a well-developed, well-nourished female, in minimal distress. She is awake and alert. She has an NG tube in her nose, which is draining minimal amount of fluid. LUNGS: Clear. HEART: Regular rate and rhythm. ABDOMEN: Soft, very minimal distention. No significant tenderness at this time. LABORATORY DATA: Her white count is 14.4, hemoglobin and hematocrit of 13 and 40, platelet count 267. Electrolytes are fine. HCG negative. CT scan shows dilatation of the distal small bowel with some fecalization consistent with a chronic small-bowel obstruction. ASSESSMENT: Partial small-bowel obstruction with Crohn disease. PLAN: NG suction, IV hydration, steroids, potential surgery if she does not open up. Job ID: [id number]
--- NOTE | 2019-10-28 12:03 | CON ---
DATE OF CONSULTATION: 10/28/2019 CHIEF COMPLAINT: Abdominal pain, nausea, and vomiting. HISTORY OF PRESENT ILLNESS: Ms. Capps is a 29-year-old woman with Crohn disease. She was last hospitalized 12/2017, when I saw her, covering for Dr. Kendrick at that time. She has small bowel Crohn's and Dr. Kendrick has been treating her with azathioprine and sulfasalazine. She has only seen him once over the last year. She thinks this was last summer. Yesterday, she developed aching periumbilical abdominal pain, that gradually worsened throughout the day, such that she left work a few minutes early after she started having nausea and vomiting associated with it. She generally has a bowel movement, which is brown once or twice a day; however, over the last couple of months, she has had red blood streaks with a brown stool 2-3 times per week. She had an episode of diarrhea yesterday. She has had no fever. No chest pain or shortness of breath. She has not been taking folic acid with her sulfasalazine, but does take a multiple vitamin and vitamin D. She states that she is supposed to get her blood drawn to monitor her blood counts on the azathioprine, but she has not been routinely doing it. PAST MEDICAL HISTORY: 1. Crohn disease. She has been followed by Dr. Kendrick for this. She had colonoscopy at [facility] in 03/2017 per her report. She has not been very compliant with her azathioprine previously. 2. Depression. PAST SURGICAL HISTORY: 1. Ovary removed for a large cyst. 2. Colonoscopy. FAMILY HISTORY: Positive for colon cancer in her uncle. SOCIAL HISTORY: No alcohol, tobacco, or drugs. ALLERGIES: NO KNOWN DRUG ALLERGIES. MEDICATIONS: Prior to admission, she states that she takes four sulfasalazine tablets per day. She has also been taking azathioprine two of the 50 mg tablets daily. REVIEW OF SYSTEMS: Negative x10 systems reviewed except as stated in the history of present illness. PHYSICAL EXAMINATION: VITAL SIGNS: Temperature is 98.9, pulse 98, and blood pressure 104/67. GENERAL: She is in no acute distress. Alert and oriented x3. HEENT: She has an NG tube in place. Her oropharynx is clear without lesions otherwise. She has no cervical or supraclavicular lymphadenopathy. LUNGS: Clear to auscultation bilaterally. HEART: Regular rate and rhythm without murmur. ABDOMEN: Soft. Minimal tenderness in the epigastric region and periumbilical region without guarding. Her bowel sounds are present. EXTREMITIES: No lower extremity edema. NEUROLOGIC: Cranial nerves are grossly intact. LABORATORY DATA: White blood cell count 14.4, hemoglobin 13.7, and platelets 267. Creatinine 0.7, bilirubin 0.6, AST 30, ALT 15, alkaline phosphatase 66, and albumin 4.4. IMPRESSION: 1. Small bowel Crohn disease. She was last hospitalized in 12/2017 and responded well to steroids at that time. She has been treated with sulfasalazine and azathioprine, but her compliance is questionable on that. CT scan was performed, that showed thickening of the small intestine with narrowing on the proximal and distal ends of this area of thickening and dilation. She has had some clear brown output from her nasogastric tube and has no further vomiting. RECOMMENDATIONS: 1. Methylprednisolone 20 mg every 8 hours. 2. She can continue with azathioprine and sulfasalazine. She will need to add folic acid to the regimen, she is on sulfasalazine. She has been taking 2000 mg of sulfasalazine daily and 100 mg of azathioprine daily. Folic acid can be given 1 mg daily. 3. She is clinically improving tomorrow, we should be able to try a small-bowel follow-through with Gastrografin to see if the inflamed small bowel segment is opening up, and if so, then we can advance her diet accordingly. NG tube could be removed at that point as well. 4. DVT prophylaxis. Job ID: [id number]
[2019-10-28] MEDS: Sodium Chloride 0.9% 1,000 ML IV SCH ×3 (12:49→22:02)
[2019-10-28] MEDS: Ondansetron PF 4 MG/2 ML Vial IVP PRN (20:47)
[2019-10-29] MEDS: Sodium Chloride 0.9% 1,000 ML IV SCH ×4 (05:42→15:14)
[2019-10-29 06:24] LABS: #Lymphocytes 1.1 thou/uL (1.20-3.40); #Monocytes 0.7 thou/uL (0.11-0.59); #Neutrophils 9.1 thou/uL (1.40-6.50); %Basophils 0.2 % (0.0-1.0); %Eosinophils 0.1 % (0.0-10.0); %Lymphocytes 9.8 % (21.0-51.0); %Monocytes 6.1 % (0.0-10.0); %Neutrophils 83.8 % (42.0-75.0); Hemoglobin 10.7 g/dL (12.0-16.0); Mean Corpuscular Hemoglobin 30.3 pg (27.0-31.0); Mean Corpuscular Volume 91.9 fL (78.0-98.0); Mean Platelet Volume 7.8 fL (7.4-10.4); Platelet Count 210 thou/uL (130-400); RBC Distribution Width 12.1 % (11.5-14.5); Red Blood Cell (RBC) Count 3.53 mill/uL (4.20-5.40); White Blood Cell (WBC) Count 10.9 thou/uL (4.8-10.8)
[2019-10-29 06:39] LABS: Anion Gap 11 mmol/L (10-20); BUN (Urea Nitrogen) 7 mg/dL (7.0-18.7); Calc. Creatinine Clearance 165 mL/min (70-130); Calcium 7.9 mg/dL (7.8-10.44); Carbon Dioxide 19 mmol/L (22-29); Chloride 110 mmol/L (98-107); Estimated GFR-MDRD Greater than 90; Glucose 89 mg/dL (70-105); Potassium 3.6 mmol/L (3.5-5.1); Sodium 136 mmol/L (136-145)
[2019-10-29] MEDS: methylPREDNISolone Sod Succ 40 MG VIAL IVP SCH ×3 (06:41→21:19)
[2019-10-29] MEDS: Enoxaparin Sodium 40 MG/0.4 ML SYRINGE SC SCH (08:07)
[2019-10-29] MEDS ORDERED: Chloraseptic Spray 180 ml Bottle PO PRN (10:04)
[2019-10-29] MEDS: azaTHIOprine 50 MG TAB PO SCH ×2 (10:16→10:51)
[2019-10-29] MEDS: Folic Acid 1 MG TAB PO SCH ×2 (10:17→10:51)
[2019-10-29] MEDS: sulfaSALAzine 500 MG TAB PO SCH ×2 (10:18→10:50)
[2019-10-29] MEDS: Senokot S 8.6-50 MG TAB PO SCH ×2 (10:18→21:21)
[2019-10-29] MEDS ORDERED: Pantoprazole 40 MG VIAL IVP SCH (10:30)
[2019-10-29] MEDS: Ondansetron PF 4 MG/2 ML Vial IVP PRN ×2 (11:05→16:38)
--- NOTE | 2019-10-29 12:51 | PDOC.GSPN ---
Surgery Progress Note: Subj - Subjective Narrative: Patient is feeling better. She is having only minimal abdominal pain and no nausea. Her NG was clamped to ambulate but she did have 600 mL out last night. She states that she has passed some gas but hasn't had a bowel movement. She is receiving IV steroids but hasn't yet gotten any sulfasalazine or azathioprine; I instructed her nurses to go ahead and get those and clamp the NG for 2 hours after. She has some minimal tenderness to palpation in the lower abdomen. She is afebrile with normal vital signs. She hasn't required any pain medicine for nausea medicine since yesterday. Assessment/plan: Crohn's disease with bowel obstruction. CT was suggestive of a closed loop obstruction but symptomatically she is better on bowel rest and IV steroids, and she is passing some gas today. Her NG output on the fast food shift lead was 600 mL so I'm going to continue with NG drainage today except when she is ambulating or after she receives her by mouth medications. If she is doing better tomorrow we'll consider small bowel follow through. Surgery Progress Note: Obj - Vital signs Vital signs: Vital Signs - Most Recent Temp Pulse Resp BP Pulse Ox 97.9 F 78 16 106/67 99 10/29/19 11:45 10/29/19 11:45 10/29/19 11:45 10/29/19 11:45 10/29/19 11:45 Surgery Progress Note: Results - Labs Result Diagrams: 10/29/19 06:06 10/29/19 06:07 Lab results: Laboratory Results - last 24 hr 10/29/19 10/29/19 06:06 06:07 WBC 10.9 H RBC 3.53 L Hgb 10.7 L Hct 32.5 L MCV 91.9 MCH 30.3 MCHC 33.0 RDW 12.1 Plt Count 210 MPV 7.8 Neutrophils % 83.8 H Lymphocytes % 9.8 L Monocytes % 6.1 Eosinophils % 0.1 Basophils % 0.2 Neutrophils # 9.1 H Lymphocytes # 1.1 L Monocytes # 0.7 H Eosinophils # 0.0 Basophils # 0.0 Sodium 136 Potassium 3.6 Chloride 110 H Carbon Dioxide 19 L Anion Gap 11 BUN 7 Creatinine 0.51 L Estimated GFR (MDRD) Greater than 90 Glucose 89 Calcium 7.9
--- NOTE | 2019-10-29 13:53 | PRG ---
DATE OF SERVICE: 10/29/2019 SUBJECTIVE: Ms. Capps is feeling better. She has no abdominal pain. No nausea. OBJECTIVE: VITAL SIGNS: Temperature is 97.9, pulse 78, blood pressure 106/67. GENERAL: She is in no acute distress. HEENT: She has flushing of her cheeks and acne. LUNGS: Clear to auscultation bilaterally. HEART: Regular rate and rhythm without murmur. ABDOMEN: Soft, nontender, and nondistended. Bowel sounds are present. EXTREMITIES: No lower extremity edema. LABORATORY DATA: Creatinine is 0.5. Hemoglobin is down from 13.7 to 10.7. IMPRESSION: Acute flare of small bowel Crohn disease. Presenting with partial obstruction possibly, but doing better with NG suction and steroids. She is having some side effects with the steroids with flushing and acne, but no other acute complaints at this point. Her hemoglobin and creatinine have come down with fluids and rehydration. Overall, she is clinically improving. She did still have a significant amount of output from her NG tube last night with over 600 mL, so NG tube is being left to suction today and then hopefully tomorrow will be able to discontinue and then consider small-bowel follow-through versus advancement to a clear liquid diet tomorrow. RECOMMENDATIONS: 1. Continue IV steroids. 2. If she continues to do well tomorrow morning, then we can likely give Gastrografin by small-bowel follow-through tomorrow to verify no ongoing obstruction versus trial of clear liquids to favor the imaging study. 3. When she is tolerating oral intake, then we can restart her azathioprine. Job ID: [id number]
--- NOTE | 2019-10-29 15:33 | PDOC.HOSPP ---
- Subjective Encounter Date: 10/29/19 Encounter Time: 08:40 Subjective: Pt seen for followup re: bowel obstruction. Passing flatus, no bowel movement yet. - Objective Vital Signs & Weight: Vital Signs (12 hours) Temp Pulse Resp BP BP Pulse Ox 10/29/19 15:26 98 F 87 16 108/67 99 10/29/19 11:45 97.9 F 78 16 106/67 99 10/29/19 08:00 97.9 F 92 18 136/75 99 Weight Admit Weight 143 lb 14.4 oz Weight 143 lb 14.4 oz I&O: 10/28/19 10/29/19 10/30/19 06:59 06:59 06:59 Intake Total 3300 Output Total 840 Balance 2460 Result Diagrams: 10/29/19 06:06 10/29/19 06:07 Additional Labs: Labs and MARs reviewed by pr Hospitalist ROS - Review of Systems Cardiovascular: denies: chest pain, palpitations, orthopnea, paroxysmal noc. dyspnea, edema, light headedness Gastrointestinal: reports: constipation. denies: nausea, vomiting, abdominal pain, diarrhea, melena, hematochezia - Medication Medications: Active Medications Generic Name Dose Route Start Last Admin Trade Name Freq PRN Reason Stop Dose Admin Enoxaparin Sodium 40 mg 10/28/19 09:00 10/29/19 08:07 Lovenox SC 40 mg 0900 ANN-MARIE Administration Sodium Chloride 1,000 mls @ 125 mls/hr 10/28/19 10:46 10/29/19 15:14 Normal Saline 0.9% IV Not Given .Q8H ANN-MARIE Methylprednisolone Sodium Succinate 20 mg 10/28/19 06:00 10/29/19 13:20 Solu-Medrol IVP 20 mg Q8HR ANN-MARIE Administration Morphine Sulfate 2 mg 10/28/19 05:41 10/28/19 12:36 Morphine SLOW IVP 2 mg Q4H PRN Administration Breakthrough Pain Ondansetron HCl 4 mg 10/28/19 05:41 10/29/19 11:05 Zofran IVP 4 mg Q6H PRN Administration Nausea/Vomiting use 1st Phenol 0 ml 10/29/19 10:04 10/29/19 11:03 Chloraseptic [place] 180 Ml Bot PO 1 spray BIDPRN PRN Administration Sore Throat Senna/Docusate Sodium 1 tab 10/28/19 09:00 10/29/19 10:18 Senokot S PO Not Given BID ANN-MARIE Sodium Chloride 10 ml 10/28/19 21:00 10/29/19 10:18 Flush - Normal Saline IVF Not Given Q12HR ANN-MARIE - Exam General Appearance: NAD Eye: anicteric sclera ENT: moist mucosa Neck: supple, no JVD Heart: RRR Respiratory: CTAB, no rales Gastrointestinal: soft, non-tender, diminished bowl sounds Psychiatric: normal affect, normal behavior Hosp A/P (1) SBO (small bowel obstruction) Code(s): K56.609 - UNSP INTESTNL OBST, UNSP TO PARTIAL VERSUS COMPLETE OBST Status: Acute (2) Depression Code(s): F32.9 - MAJOR DEPRESSIVE DISORDER, SINGLE EPISODE, UNSPECIFIED Status : Chronic Qualifiers: Depression Type: unspecified Qualified Code(s): F32.9 - Major depressive disorder, single episode, unspecified (3) Iron deficiency anemia Code(s): D50.9 - IRON DEFICIENCY ANEMIA, UNSPECIFIED Status: Chronic Qualifiers: Iron deficiency anemia type: inadequate dietary iron intake Qualified Code( s): D50.8 - Other iron deficiency anemias - Plan SBO secondary to Crohn's flare. Continue IV steroids. GI and gen surg following. Depression mild, stable.
[2019-10-30] MEDS: Sodium Chloride 0.9% 1,000 ML IV SCH ×3 (04:50→21:36)
[2019-10-30 05:26] LABS: #Lymphocytes 1.3 thou/uL (1.20-3.40); #Monocytes 0.7 thou/uL (0.11-0.59); #Neutrophils 10.1 thou/uL (1.40-6.50); %Basophils 0.1 % (0.0-1.0); %Lymphocytes 10.6 % (21.0-51.0); %Monocytes 5.4 % (0.0-10.0); %Neutrophils 83.9 % (42.0-75.0); Hemoglobin 10.9 g/dL (12.0-16.0); Mean Corpuscular HGB CONC 33.3 g/dL (32.0-36.0); Mean Corpuscular Hemoglobin 30.9 pg (27.0-31.0); Mean Corpuscular Volume 92.6 fL (78.0-98.0); Mean Platelet Volume 8.3 fL (7.4-10.4); Platelet Count 204 thou/uL (130-400); Red Blood Cell (RBC) Count 3.52 mill/uL (4.20-5.40); White Blood Cell (WBC) Count 12.1 thou/uL (4.8-10.8)
[2019-10-30 05:44] LABS: Anion Gap 11 mmol/L (10-20); BUN (Urea Nitrogen) 8 mg/dL (7.0-18.7); Calc. Creatinine Clearance 156 mL/min (70-130); Calcium 8.2 mg/dL (7.8-10.44); Carbon Dioxide 21 mmol/L (22-29); Chloride 110 mmol/L (98-107); Estimated GFR-MDRD Greater than 90; Glucose 86 mg/dL (70-105); Potassium 3.4 mmol/L (3.5-5.1); Sodium 139 mmol/L (136-145)
[2019-10-30] MEDS: methylPREDNISolone Sod Succ 40 MG VIAL IVP SCH ×3 (06:17→21:30)
[2019-10-30] MEDS: Enoxaparin Sodium 40 MG/0.4 ML SYRINGE SC SCH (09:58)
[2019-10-30] MEDS: azaTHIOprine 50 MG TAB PO SCH (09:59)
[2019-10-30] MEDS: sulfaSALAzine 500 MG TAB PO SCH (09:59)
[2019-10-30] MEDS: Pantoprazole 40 MG VIAL IVP SCH (09:59)
[2019-10-30] MEDS: Folic Acid 1 MG TAB PO SCH (09:59)
[2019-10-30] MEDS: Senokot S 8.6-50 MG TAB PO SCH ×2 (09:59→21:34)
[2019-10-30] MEDS ORDERED: MD-Gastroview 120 ML BOT ONE (12:45)
--- NOTE | 2019-10-30 13:25 | PDOC.GSPN ---
Surgery Progress Note: Subj - Subjective Narrative: Patient feels better today. No abdominal pain or nausea. She is passing some gas but hasn't had any bowel movements. NG output is diminished and is clear in color. Abdomen is soft nontender nondistended and vital signs are normal. Assessment/plan: Partial small bowel obstruction improved on medical management of Crohn's. Gastric and small bowel follow through is ordered for today. If this is normal her NG tube will be discontinued and we'll start her on a liquid diet and advance as tolerated. Will await results. Surgery Progress Note: Obj - Vital signs Vital signs: Vital Signs - Most Recent Temp Pulse Resp BP Pulse Ox 97.8 F 74 16 113/74 98 10/30/19 12:15 10/30/19 12:15 10/30/19 12:15 10/30/19 12:15 10/30/19 12:15 Surgery Progress Note: Results - Labs Result Diagrams: 10/30/19 05:02 10/30/19 05:02 Lab results: Laboratory Results - last 24 hr 10/30/19 10/30/19 05:02 05:02 WBC 12.1 H RBC 3.52 L Hgb 10.9 L Hct 32.6 L MCV 92.6 MCH 30.9 MCHC 33.3 RDW 12.0 Plt Count 204 MPV 8.3 Neutrophils % 83.9 H Lymphocytes % 10.6 L Monocytes % 5.4 Eosinophils % 0.0 Basophils % 0.1 Neutrophils # 10.1 H Lymphocytes # 1.3 Monocytes # 0.7 H Eosinophils # 0.0 Basophils # 0.0 Sodium 139 Potassium 3.4 L Chloride 110 H Carbon Dioxide 21 L Anion Gap 11 BUN 8 Creatinine 0.54 L Estimated GFR (MDRD) Greater than 90 Glucose 86 Calcium 8.2
[2019-10-30] MEDS: Ondansetron PF 4 MG/2 ML Vial IVP PRN (13:57)
--- NOTE | 2019-10-30 14:11 | RAD ---
EXAM: Small bowel follow-through HISTORY: Small bowel obstruction COMPARISON: None FINDINGS: A Gastrografin small bowel follow-through was performed. The small bowel loops are normal i n caliber without distention. Contrast passes through the small bowel loops to the colon by one hour. IMPRESSION: No evidence of complete bowel obstruction
--- NOTE | 2019-10-30 17:05 | PDOC.HOSPP ---
- Subjective Encounter Date: 10/30/19 Encounter Time: 08:20 Subjective: Pt seen for followup re: bowel obstruction. Feels better. passing flatus, no bowel movement. - Objective Vital Signs & Weight: Vital Signs (12 hours) Temp Pulse Resp BP Pulse Ox 10/30/19 12:15 97.8 F 74 16 113/74 98 10/30/19 08:14 98 F 71 16 117/71 97 10/30/19 08:13 97 Weight Admit Weight 143 lb 14.4 oz Weight 143 lb 14.4 oz I&O: 10/29/19 10/30/19 10/31/19 06:59 06:59 06:59 Intake Total 3300 3060 Output Total 840 900 Balance 2460 2160 Result Diagrams: 10/30/19 05:02 10/30/19 05:02 Additional Labs: Labs and MARs reviewed by az Hospitalist ROS - Review of Systems Cardiovascular: denies: chest pain, palpitations, orthopnea, paroxysmal noc. dyspnea, edema, light headedness Gastrointestinal: reports: constipation. denies: nausea, vomiting, abdominal pain, diarrhea, melena, hematochezia - Medication Medications: Active Medications Generic Name Dose Route Start Last Admin Trade Name Freq PRN Reason Stop Dose Admin Azathioprine 100 mg 10/30/19 09:00 10/30/19 09:59 Imuran PO Not Given DAILY [facility] Enoxaparin Sodium 40 mg 10/28/19 09:00 10/30/19 09:58 Lovenox SC 40 mg 0900 ANN-MARIE Administration Folic Acid 1 mg 10/30/19 09:00 10/30/19 09:59 Folvite PO Not Given DAILY [facility] Sodium Chloride 1,000 mls @ 125 mls/hr 10/28/19 10:46 10/30/19 12:19 Normal Saline 0.9% IV 1,000 mls .Q8H ANN-MARIE Administration Methylprednisolone Sodium Succinate 20 mg 10/28/19 06:00 10/30/19 13:57 Solu-Medrol IVP 20 mg Q8HR ANN-MARIE Administration Morphine Sulfate 2 mg 10/28/19 05:41 10/28/19 12:36 Morphine SLOW IVP 2 mg Q4H PRN Administration Breakthrough Pain Ondansetron HCl 4 mg 10/28/19 05:41 10/30/19 13:57 Zofran IVP 4 mg Q6H PRN Administration Nausea/Vomiting use 1st Pantoprazole Sodium 40 mg 10/30/19 09:00 10/30/19 09:59 Protonix IVP 40 mg DAILY ANN-MARIE Administration Phenol 0 ml 10/29/19 10:04 10/29/19 11:03 Chloraseptic [place] 180 Ml Bot PO 1 spray BIDPRN PRN Administration Sore Throat Senna/Docusate Sodium 1 tab 10/28/19 09:00 10/30/19 09:59 Senokot S PO Not Given BID ANN-MARIE Sodium Chloride 10 ml 10/28/19 21:00 10/30/19 09:59 Flush - Normal Saline IVF 10 ml Q12HR ANN-MARIE Administration Sulfasalazine 2,000 mg 10/30/19 09:00 10/30/19 09:59 Azulfidine PO Not Given DAILY ANN-MARIE - Exam General Appearance: NAD Eye: anicteric sclera ENT: moist mucosa Neck: supple Heart: RRR Respiratory: CTAB, no rales Gastrointestinal: soft, non-tender, normal bowel sounds Psychiatric: normal affect, normal behavior Hosp A/P (1) SBO (small bowel obstruction) Code(s): K56.609 - UNSP INTESTNL OBST, UNSP TO PARTIAL VERSUS COMPLETE OBST Status: Acute (2) Depression Code(s): F32.9 - MAJOR DEPRESSIVE DISORDER, SINGLE EPISODE, UNSPECIFIED Status : Chronic Qualifiers: Depression Type: unspecified Qualified Code(s): F32.9 - Major depressive disorder, single episode, unspecified (3) Iron deficiency anemia Code(s): D50.9 - IRON DEFICIENCY ANEMIA, UNSPECIFIED Status: Chronic Qualifiers: Iron deficiency anemia type: inadequate dietary iron intake Qualified Code( s): D50.8 - Other iron deficiency anemias - Plan out of bed/ambulate Clinically improving. SBO secondary to Crohn's flare. Pt is on IV steroids. GI and gen surg following. For gastrograffin test.
--- NOTE | 2019-10-30 20:15 | PRG ---
DATE OF SERVICE: 10/30/2019 SUBJECTIVE: Ms. Capps feels much better after getting her NG tube out. She had a Gastrografin small bowel follow-through today which passed on through to the colon without obstruction. She has had a few bowel movements since then and overall feels much better. She has still been taking clear liquid diet and not had much of appetite beyond that. She has had no nausea or vomiting. She is feeling much better overall. OBJECTIVE: VITAL SIGNS: Temperature 97.8, pulse 82, blood pressure 128/73. GENERAL: She is in no acute distress. Alert and oriented x3. She has acne and flushing in her face related to the steroids. LUNGS: Clear to auscultation bilaterally. HEART: Regular rate and rhythm without murmur. ABDOMEN: Soft, nontender, nondistended. Bowel sounds are present. EXTREMITIES: No lower extremity edema. LABORATORY DATA: White blood cell count 12.1, hemoglobin 10.9, platelets 204. Creatinine 0.54. IMPRESSION: 1. Exacerbation of small-bowel Crohn disease. She presented with partial small-bowel obstruction, it is now resolved. NG tube is out, and the small-bowel follow-through shows contrast passed easily through the inflamed area. She is greatly improved now. RECOMMENDATIONS: 1. Transition to prednisone tomorrow morning. 2. Low-fiber diet tomorrow morning. 3. If she is doing well with oral intake tomorrow, then she can likely discharge home tomorrow evening. 4. We will want to taper her prednisone at 40 mg for a week, 30 mg for a week, 20 mg for a week, 10 mg for a week, 5 mg for a week, and then discontinue. She can continue the sulfasalazine 2000 mg daily, but will need also take folic acid 1 mg daily along with that. She will continue the azathioprine [address] Kendrick, I believe, will be back in town tomorrow, but if not all followup. If she is discharged home tomorrow, she can follow up with Dr. Kendrick in the next month. She should be covered with steroid in the meantime. Job ID: [id number]
[2019-10-31] MEDS: methylPREDNISolone Sod Succ 40 MG VIAL IVP SCH (05:22)
[2019-10-31] MEDS: Sodium Chloride 0.9% 1,000 ML IV SCH (05:23)
[2019-10-31 05:38] LABS: #Lymphocytes 1.6 thou/uL (1.20-3.40); #Monocytes 0.9 thou/uL (0.11-0.59); #Neutrophils 9.3 thou/uL (1.40-6.50); %Basophils 0.3 % (0.0-1.0); %Eosinophils 0.2 % (0.0-10.0); %Lymphocytes 13.6 % (21.0-51.0); %Monocytes 7.8 % (0.0-10.0); %Neutrophils 78.1 % (42.0-75.0); Hemoglobin 10.7 g/dL (12.0-16.0); Mean Corpuscular HGB CONC 32.2 g/dL (32.0-36.0); Mean Corpuscular Hemoglobin 30.6 pg (27.0-31.0); Mean Platelet Volume 8.2 fL (7.4-10.4); Platelet Count 199 thou/uL (130-400); RBC Distribution Width 12.3 % (11.5-14.5); Red Blood Cell (RBC) Count 3.48 mill/uL (4.20-5.40); White Blood Cell (WBC) Count 11.9 thou/uL (4.8-10.8)
[2019-10-31 05:51] LABS: Anion Gap 11 mmol/L (10-20); BUN (Urea Nitrogen) 10 mg/dL (7.0-18.7); Calc. Creatinine Clearance 147 mL/min (70-130); Carbon Dioxide 20 mmol/L (22-29); Chloride 111 mmol/L (98-107); Estimated GFR-MDRD Greater than 90; Glucose 76 mg/dL (70-105); Potassium 3.7 mmol/L (3.5-5.1); Sodium 138 mmol/L (136-145)
[2019-10-31] MEDS ORDERED: predniSONE 20 MG TAB PO SCH (08:00)
[2019-10-31] MEDS: Enoxaparin Sodium 40 MG/0.4 ML SYRINGE SC SCH (08:53)
[2019-10-31] MEDS: Senokot S 8.6-50 MG TAB PO SCH (08:53)
[2019-10-31] MEDS: Pantoprazole 40 MG VIAL IVP SCH (08:53)
[2019-10-31] MEDS: azaTHIOprine 50 MG TAB PO SCH (08:53)
[2019-10-31] MEDS: sulfaSALAzine 500 MG TAB PO SCH (08:53)
[2019-10-31] MEDS: Folic Acid 1 MG TAB PO SCH (08:53)
--- NOTE | 2019-10-31 10:42 | PRG ---
DATE OF SERVICE: 10/31/2019 SUBJECTIVE: Ms. Capps feels fine. She has tolerated full liquids well this morning. She had her last dose of Solu-Medrol this morning and took prednisone orally. She has had no abdominal pain. Diarrhea is improved. Overall, she is feeling much better. OBJECTIVE: VITAL SIGNS: Temperature 97.9, pulse 56, blood pressure 105/61. GENERAL: She is in no acute distress. Alert and oriented x3. LUNGS: Clear to auscultation bilaterally. HEART: Regular rate and rhythm without murmur. ABDOMEN: Soft, nontender, nondistended. Bowel sounds are present. EXTREMITIES: No lower extremity edema. IMPRESSION: Exacerbation of small bowel Crohn disease. She presented with partial small-bowel obstruction, which is now resolved. She is improved with steroids. RECOMMENDATIONS: 1. Taper prednisone over 5 weeks as laid out in the note yesterday. 2. Continue azathioprine 100 mg daily. 3. Continue sulfasalazine 2000 mg daily. 4. Continue folic acid 1 mg daily. 5. Low-fiber diet. 6. If she tolerates the low-fiber diet well today, she can discharge home this evening. 7. Follow up with Dr. Kendrick in 2 to 4 weeks. She will likely require further adjustment of her immunosuppressive medications as this is now her second hospitalization and steroid course in 6 months. Options include increasing her azathioprine or changing to a biologic. In anticipation of the potential need to change to a biologic, I will check a QuantiFERON level today. Also, we will check immune status to hepatitis A and hepatitis B with total hep A antibody and hepatitis B surface antibody. Job ID: [id number]
[2019-10-31 11:44] LABS: HBSAg Index 0.22 S/CO (0-0.99); Hep B Surf Ag Non-Reactive S/CO (NonReactive)
[2019-10-31 12:25] VITALS: BP 109/68; TEMP 98.4
[2019-10-31 14:58] LABS: Hep B Surf AB NonReactive (NonReactive)
[2019-10-31 14:59] LABS: HBSAB Concentration 6.64 mIU/mL
--- NOTE | 2019-10-31 21:03 | DIS ---
DATE OF ADMISSION: 10/28/2019 DATE OF DISCHARGE: 10/31/2019 PRIMARY CARE PROVIDER: [facility]. DISCHARGE DIAGNOSES: 1. Small-bowel obstruction. 2. Small-bowel obstruction secondary to Crohn's disease flare. 3. Hyponatremia. 4. Hypokalemia. 5. Depression, mild, stable. CONDITION OF PATIENT ON THE DAY OF DISCHARGE: Stable. I assessed Ms. Capps on the day of discharge. She denies any chest pain or shortness of breath. Vital signs are stable. S1 and S2 are heard, regular. Lungs are clear to auscultation bilaterally. DISCHARGE MEDICATIONS: 1. Prednisone 40 mg daily for one week, then 30 mg daily for one week, then 20 mg daily for one week, then 10 mg daily for one week, then 5 mg daily for one week, then discontinue. 2. Folic acid 1 mg daily. 3. Imuran 100 mg daily. 4. Sulfasalazine 2000 mg daily. 5. Bentyl 10 mg 3 times a day. 6. Citalopram 40 mg daily. CONSULTATIONS DURING THIS HOSPITALIZATION: Gastroenterology, Dr. Rodgers and General Surgery, Dr. Banks. HOSPITAL COURSE: Ms. Capps is a pleasant 29-year-old lady, who was admitted to [facility] on October 28, 2019, for small-bowel obstruction secondary to Crohn disease flare up. She was seen by General Surgery and Gastroenterology Services. She improved with intravenous steroids. Small bowel x-ray done on October 30, 2019, did not show any evidence of complete bowel obstruction. Contrast passed through the small bowel loops to the colon by 1 hour. She was started on a diet and tolerated it. She is being discharged home in a stable condition. POST-ACUTE CARE FOLLOWUP: With primary care provider in 3 days time and with Gastroenterology, Dr. Kendrick in 2 to 3 weeks. On the day of discharge, she has sodium 138, potassium 3.7, creatinine 0.57, white count 42614, hemoglobin 10.7, and platelet count 199,000. Many thanks for allowing me to participate in your patient's care. Please feel free to contact me with any questions or concerns. DISCHARGE DESTINATION: Home. TIME SPENT: Total amount of time spent coordinating this discharge: 20 minutes. Job ID: [id number]
== END 2019-10-31 16:25 | disposition home or self-care (01) | DRG 386 ==
LOC: ERS 21:16 → SURG A 10-28 02:47
PROVIDERS: ADMIT Internal Medicine; ATTEND Internal Medicine
DX: K50.012 Crohn's disease of small intestine with intestinal obstruction (principal); E87.1 Hypo-osmolality and hyponatremia; F32.0 Major depressive disorder, single episode, mild; E87.6 Hypokalemia; E11.9 Type 2 diabetes mellitus without complications; I10 Essential (primary) hypertension; D50.9 Iron deficiency anemia, unspecified; Z90.721 Acquired absence of ovaries, unilateral; Z79.899 Other long term (current) drug therapy
CPT/HCPCS: 36415; 74177; 74250; 80048; 80053; 81003; 81025; 83690; 85025; 86480; 86706; 86708; 87340; 96361; 96374; 96375; 96376; C9113; J1650; J2270; J2405; J2550; J2920; J7500; J7512; Q0162; Q9963; Q9967